=== PATIENT | female | born 2000 | race Caucasian/White ===

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

== ENCOUNTER 2019-04-18 09:24 | Emergency (ER) | payer BC ==
--- NOTE | 2019-04-18 09:35 | Emergency Department Record ---
History of Present Illness - General Chief Complaint: Ankle/Foot Injury Stated Complaint: ANKLE INJURY Time Seen by Provider: 04/18/19 09:29 Source: Patient, Family Mode of Arrival: Ambulatory Limitations: No limitations - History of Present Illness Initial Comments: 19 yo female presents with right lateral ankle pain. She mis-stepped on a sidewalk and twisted the ankle. She denies foot or knee pain. No achilles pain. She is tender and swollen laterally. No numbness or tingling. No weakness. Pain with ambulation and weight bearing. MD Complaint: Ankle injury -: Days(s) (1) Injury: Ankle: Right Type of Injury: Eversion Place: Street/outdoors Severity: Moderate Improves With: Immobilization Worsens With: Movement, Palpation Context: Walking Other Symptoms: Other Associated Symptoms: Swelling - Related Data Home Medications Medication Instructions Recorded Confirmed Last Taken Norgestimate-Ethinyl Estradiol 1 each PO DAILY 04/18/19 04/18/19 Unknown [Norg-Ee 0.18-0.215-0.25/0.025] Allergies Allergy/AdvReac Type Severity Reaction Status Date / Time No Known Drug Allergies Allergy Verified 06/17/14 11:26 Review of Systems Constitutional: Denies: Chills, Fever Eyes: Denies: Eye discharge ENT: Denies: Congestion, Throat pain Respiratory: Denies: Cough Cardiovascular: Denies: Edema Endocrine: Denies: Fatigue Gastrointestinal: Denies: Abdominal pain, Diarrhea, Nausea, Vomiting Genitourinary: Denies: Dysuria, Urgency Musculoskeletal: Reports: As per HPI, Arthralgia Skin: Denies: Change in color, Rash Neurological: Denies: Headache, Numbness, Weakness Psychiatric: Denies: Anxiety Hematological/Lymphatic: Denies: Easy bleeding, Easy bruising Past Medical History - SOCIAL HISTORY Smoking Status: Never smoker Drug Use: None - RESPIRATORY Hx Respiratory Disorders: No - CARDIOVASCULAR Hx Cardio Disorders: No - NEURO Hx Neuro Disorders: No - GI Hx GI Disorders: No - Hx Genitourinary Disorders: No - ENDOCRINE Hx Endocrine Disorders: No - MUSCULOSKELETAL Hx Musculoskeletal Disorders: No - PSYCH Hx Psych Problems: No - HEMATOLOGY/ONCOLOGY Hx Hematology/Oncology Disorders: No Family Medical History Hx Cancer: Grandparents Physical Exam - General General Appearance: Alert, Oriented x3, Cooperative, No acute distress Limitations: No limitations - Head Head exam: Atraumatic, Normal inspection - Eye Eye exam: Normal appearance - ENT ENT exam: Normal exam - Neck Neck exam: Normal inspection - Cardiovascular Peripheral Pulses: 2+: Dorsalis Pedis (R) - Rectal Rectal exam: Deferred - exam: Deferred - Extremities Extremities exam: Joint swelling, Tenderness. negative: Normal inspection, Calf tenderness, Full ROM, Pedal edema Image of Feet: 1 - swelling laterally, tender anterior and inferior. Non tender posterior. No lateral foot tenderness. No achilles tenderness. No knee tenderness. - Neurological Neurological exam: Alert, Oriented X3. negative: Motor sensory deficit - Psychiatric Psychiatric exam: Normal affect, Normal mood. negative: Agitated, Anxious - Skin Skin exam: Dry, Intact, Normal color, Warm Course - Reevaluation(s) Reevaluation #1: 04/18/19 09:58 The XR was reviewed No acute fracture or osseous injury We discussed the XR findings We discussed home care with the ankle and the need to follow up in one to two weeks if any pain continues She will be provided crutches and brace until pain free 04/18/19 10:11 04/18/19 10:12 Disposition Disposition: Discharge Clinical Impression: Ankle sprain Qualifiers: Encounter type: initial encounter Involved ligament of ankle: unspecified ligament Laterality: right Qualified Code(s): S93.401A - Sprain of unspecified ligament of right ankle, initial encounter Disposition: Home, Self-Care Condition: (1) Good Instructions: Ankle Sprain (ED) Additional Instructions: Review this ER visit and the tests performed with your family doctor if the ankle pain hurts more than a week Return to the ER for a recheck if worse, any new concerns or questions Ice the ankle three to four times daily and elevate to minimize swelling Use the crutches and splint for support until pain free Forms: Patient Portal Access Time of Disposition: 09:59 Quality - Quality Measures Quality Measures: N/A - Blood Pressure Screening Does Patient Have Any of the Following: No Blood Pressure Classification: Normal BP Reading Systolic Measurement: 119 Diastolic Measurement: 73 Screening for High Blood Pressure: < Normal BP, F/U Not Required > [G9701]
--- NOTE | 2019-04-18 11:22 | RADIOLOGY REPORT ---
EXAMINATION: Right Ankle, Complete Minimum Three Views EXAM DATE: 04/18/2019 9:50 AM TECHNIQUE: AP, lateral, and oblique INDICATION: lateral ankle pain COMPARISON: None ENCOUNTER: Initial FINDINGS: There is no radiographic evidence of a fracture or dislocation of the right ankle. Soft tissue swelli ng is noted of the lateral malleolus. Ankle mortise is intact. Anterior tibiotalar fat pad is unremar kable. Os trigonum is noted. IMPRESSION: 1. Soft tissue swelling is noted over the lateral malleolus without radiographic evidence of a fract ure or dislocation of the right ankle. Dictated by: Mars Wilde MD on 04/18/2019 10:58 AM. .
== END 2019-04-18 10:29 | disposition home or self-care (01) ==
LOC: ER 09:24
DX: S93.401A Sprain of unspecified ligament of right ankle, initial encounter (principal); W50.2XXA Accidental twist by another person, initial encounter; Y92.480 Sidewalk as the place of occurrence of the external cause; Y93.01 Activity, walking, marching and hiking
CPT/HCPCS: 99283